=== PATIENT | male | born 1975 | race Caucasian/White ===

== ENCOUNTER 2022-03-21 13:31 | Emergency (ER) | payer MEDICAID, SELFPAY ==
[2022-03-21 13:34] VITALS: BP 126/90; PULSE 109; RESP 16; TEMP 36.4; O2SAT 99; BMI 28.6
[2022-03-21 14:10] LABS: Absolute Lymphocyte Count 1.65 X10^3/uL (0.83-4.51); Absolute Neutrophil Count 12.4 X10^3/uL (2.0-7.7); Basophil# 0.06 X10^3/uL; Basophil% 0.4 % (0-1); Eosinophil# 0.04 X10^3/uL; Eosinophils% 0.3 % (0-5); Hematocrit 44.4 % (40-54); Lymphocyte # 1.65 X10^3/ul (0.83-4.51); Mean Corp Hgb Conc 33.8 g/dL (32-36); Mean Corpuscular Hgb 31.5 pg (27.0-32.0); Mean Corpuscular Volume 93.3 fL (80-94); Mean Platelet Vol. 9.5 fl (6.2-12.0); Monocyte# 0.82 X10^3/uL; Monocyte% 5.5 % (0-10); NRBC Flagged by Analyzer 0 % (0-5); Neutrophil % 82.5 % (47-70); Platelet Count 274 K/mm3 (150-450); RBC Distribution Width CV 13.1 % (11.6-14.6); RBC Distribution Width SD 44.9 fl (35.1-43.9); Red Blood Count 4.76 M/mm3 (4.6-6.2)
--- NOTE | 2022-03-21 14:12 | ED.VIS.GI ---
HPI HPI - GI History of Present Illness Chief Complaint: GI Bleed Informant: patient Abdominal Pain/Flank Pain Onset: Today Context: - (After colonoscopy) Timing: Continuous Quality: Sharp Location: - (Lower abdomen) Current Severity: Gone Maximum Severity: Moderate Worsened by: Nothing Relieved by: - (Passing flatus) Nausea/Vomiting/Emesis GI Symptom: Positive for Nausea and Vomiting Quality: Negative for Blood streaks or Hematemesis Episodes: 1 Diarrhea/Melena/Hematochezia Stool Quality: Positive for Black Episodes: 1 Associated Symptoms Associated Symptoms: Negative for Dysuria, Frequency, Hematuria or Urgency Narrative Narrative: 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 He had a polyp removed, when he awakened, he had lower abdominal pain, passed flatus and that went away. After he was allowed to leave, he passed some yellow stool with a chunk of something black. There is no red or blood. He felt nauseated and vomited once it was greenish. Now he is feeling better. No near-syncope or syncope. [facility] Medical History Acid reflux High cholesterol Home Medications Crestor 03/21/22 [History Last Taken Unknown] Flexeril 03/21/22 [History Last Taken Unknown] Protonix 03/21/22 [History Last Taken Unknown] Allergy/AdvReac Type Severity Reaction Status Date / Time Cephalosporins Allergy Anaphylaxis Verified 03/21/22 13:33 ciprofloxacin [From Cipro] Allergy Anaphylaxis Verified 03/21/22 13:33 clindamycin Allergy Nausea/Vom/ Verified 03/21/22 13:33 Diarrhea lincomycin Allergy Anaphylaxis Verified 03/21/22 13:33 metronidazole Allergy Hives Verified 03/21/22 13:33 Penicillins Allergy Hives Verified 03/21/22 13:33 Family History (Updated 03/21/22 @ 14:[address] Jeremy Watson MD) Mother Colon cancer Social History Smoking Status: Current some day smoker tobacco type: cigarettes ROS ROS ED Constitutional Constitutional ED: Denies chills or fever(s) Eyes Eyes: Denies change in vision or diplopia ENT ENT ED: Denies rhinorrhea or sore throat Cardiovascular Cardiovascular: Denies chest pain or palpitations Respiratory/Chest Respiratory/Chest: Denies cough or dyspnea Gastrointestinal Gastrointestinal: Reports as per HPI, abdominal pain, nausea and vomiting; Denies diarrhea Genitourinary Genitourinary ED: Denies dysuria or hematuria Musculoskeletal Musculoskeletal: Denies back pain or neck pain Integumentary Denies abscess or rash Neurologic Neurologic: Denies headache(s), paresthesias or weakness Psychiatric Psychiatric: Denies anxiety or suicidal thoughts EXAM Physical Exam Const Vital Signs: 03/21/22 13:34 Temperature 97.6 F L Temperature Source Temporal Pulse Rate 109 H Respiratory Rate 16 Blood Pressure 126/90 H Blood Pressure Mean 102 Pulse Ox 99 Oxygen Delivery Method Room Air Positive well nourished and well developed General Appearance ED: well developed and NAD HEENT Reports moist mucous membranes normocephalic and atraumatic Eyes PERRL and EOMs intact bilaterally Neck full ROM and supple Resp normal respiratory effort and clear to auscultation bilaterally Cardio regular rate, regular rhythm and no murmurs Cardio Narrative: Mildly tachycardic GI non-tender and non-distended Auscultation: normoactive bowel sounds Palpation: soft Back/Spine no CVA tenderness General Back: other FROM Extremity normal to inspection General Extremety ED: Negative for edema, pulses abnormal or tenderness General Extremity: Negative for edema or pulses abnormal Neuro oriented x3, CN's II-XII intact bilaterally and no sensory deficits noted Sensorium / Orientation: awake and alert Motor Exam: strength 5/5 throughout Skin no rashes or lesions noted and no wounds MDM MDM MDM Narrative Medical decision making narrative: Patient's hemoglobin is 15, he has a very mild tachycardia but he probably is a little dry since he just prepped for a colonoscopy, it is 1400, and he really has not had anything to drink today. He appears well and has had no orthostatic symptoms since all of this happened. The cause of a small amount of black in his stool is unknown, this is not correlating with bleeding from the procedural site; after discussing with Dr. Erazo, the patient had a polyp removed and a clip placed. I discussed with him, I agree with his plan to observe the patient for a while given some IV fluids. We monitored the patient for 1.5-2 hours, he had no clinical symptoms, he passed flatus without any other discharge, he was feeling better. He was given fluids. Discussed with Dr. Erazo he is comfortable with him leaving. Patient wants to leave. Dr. Erazo stated that the patient should slough the clip off and possibly with a small amount of blood within the next 2 days, any hemorrhages abnormal and he should report back. When I told the patient this he became extremely frustrated. He said that I and Dr. Erazo should know the source of the black and he is very upset and does not understand why the nurses sent me here. I explained to him that he is not continuing to bleed and that was the main reason for his visit here and I agree that he is safe to be discharged home. Lab Data Attestation: I reviewed the patient's lab results. Labs: Laboratory Results - last 24 hr 03/21/22 03/21/22 14:01 14:01 WBC 15.0 H RBC 4.76 Hgb 15.0 Hct 44.4 MCV 93.3 MCH 31.5 MCHC 33.8 RDW Std Deviation 44.9 H RDW Coeff of Jakub 13.1 Plt Count 274 MPV 9.5 Immature Gran % (Auto) 0.300 Neut % (Auto) 82.5 H Lymph % (Auto) 11.0 L [place] % (Auto) 5.5 Eos % (Auto) 0.3 Baso % (Auto) 0.4 Absolute Neuts (auto) 12.4 H Absolute Lymphs (auto) 1.65 Nucleated RBC % 0 Sodium 142 Potassium 3.6 Chloride 107 Carbon Dioxide 27.0 Anion Gap 8 BUN 7 Creatinine 0.95 Estim Creat Clear Calc 103.48 Est GFR (MDRD) Af Amer 109 Est GFR (MDRD) Non-Af 90 BUN/Creatinine Ratio 7.4 L Glucose 120 H Calcium 9.1 Discharge Plan Triage Chief Complaint: GI Bleed ED Provider: Jeremy Watson Dx/Rx/DC Orders Clinical Impression: Black stool Instructions: Colonoscopy Prescriptions: No Action Crestor Flexeril Protonix Primary Care Provider: Surya Trotter Referrals: Nathan Erazo MD [Med Staff - Active Staff] - 2 Days (call for instructions on following up) Surya Trotter MD [Primary Care Provider] - Disposition Disposition: Home, Self Care
[2022-03-21 14:22] LABS: Anion Gap 8 (5-15); BUN 7 mg/dL (7-18); BUN/Creat Ratio 7.4 RATIO (10-20); Calcium,Total 9.1 mg/dL (8.5-10.1); Chloride 107 mmol/L (98-107); Creatinine, Serum 0.95 mg/dL (0.70-1.30); EST Glomerular Filtration Rate 90 mL/min (>60); Est Glom Filt Rate - Afr Amer 109 mL/min (>60); Estimated Creatinine Clearance 103.48 ml/min; Glucose 120 mg/dL (74-106); Potassium 3.6 mmol/L (3.5-5.1); Sodium Level 142 mmol/L (136-145)
[2022-03-21] MEDS: 0.9% Normal Saline 1,000 ML 999 ML IV (14:32)
[2022-03-21 16:13] VITALS: BP 138/94; PULSE 118; RESP 16; O2SAT 98
== END 2022-03-21 16:14 | disposition home or self-care (01) ==
PROVIDERS: Emergency Provider Emergency Medicine; PCP Family Medicine; Visit Provider Emergency Medicine
DX: K92.1 Melena (principal); F17.210 Nicotine dependence, cigarettes, uncomplicated
CPT/HCPCS: 80048; 85025; 96360; 96361; 99283; J7030; A4216